=== PATIENT | male | born 1990 | race Caucasian/White ===

== ENCOUNTER 2018-01-18 15:49 | Emergency (ER) | payer OTHER ==
[~2018-01-18] VITALS: Ht 177.8 cm; Wt 93.0 kg
[~2018-01-18 15:49] MED LIST: NOHOMEMEDICATIONS
[2018-01-18] MEDS ORDERED: IBUPROFEN 800800 M1 PO ×2 (17:17→17:19)
[2018-01-18 17:34] VITALS: BP 159/95
== END 2018-01-18 17:36 | disposition home or self-care (01) ==
LOC: M.ERS 15:49
DX: M79.674 Pain in right toe(s) (principal)

== ENCOUNTER 2018-08-05 11:40 | Emergency (ER) | payer OTHER ==
[~2018-08-05] VITALS: Ht 175.3 cm; Wt 93.0 kg
[~2018-08-05 11:40] MED LIST changes: +IBUPROFEN 800800 M1 PO
[2018-08-05] MEDS ORDERED: KEFLEX500 M1 PO (12:09)
[2018-08-05] MEDS ORDERED: MEDROLDOSEPACK PO (12:09)
[2018-08-05] MEDS ORDERED: KEFLEX250 MG/5 M PO (12:14)
[2018-08-05 12:20] VITALS: BP 154/97
== END 2018-08-05 12:21 | disposition home or self-care (01) ==
LOC: M.ERS 11:40
DX: S40.261A Insect bite (nonvenomous) of right shoulder, initial encounter (principal); T78.40XA Allergy, unspecified, initial encounter; W57.XXXA Bitten or stung by nonvenomous insect and other nonvenomous arthropods, initial encounter; Y93.89 Activity, other specified; Y92.89 Other specified places as the place of occurrence of the external cause; Y99.8 Other external cause status

== ENCOUNTER 2020-10-02 19:20 | Emergency (ER) | payer OTHER ==
[~2020-10-02] VITALS: Ht 177.8 cm; Wt 95.3 kg
[~2020-10-02 19:20] MED LIST changes: +KEFLEX250 MG/5 M PO; +KEFLEX500 M1 PO; +MEDROLDOSEPACK PO
[2020-10-02 20:13] LABS: ABSOLUTE BASOPHILS 0.1 thou/uL (0.0-0.2); ABSOLUTE EOSINOPHILS 0.7 thou/uL (0.0-0.7); ABSOLUTE LYMPHOCYTES 4.3 thou/uL (0.8-5.3); ABSOLUTE MONOCYTES 0.9 thou/uL (0.0-1.2); ABSOLUTE NEUTROPHILS 4.7 thou/uL (1.6-8.1); BASOPHILS 1.1 %; HEMOGLOBIN 15.5 gm/dL (14.0-18.0); LYMPHOCYTES 40.3 %; MCH 31.4 pg (26.0-34.0); MCHC 35.9 g/dL (28.0-37.0); MCV 87.3 fL (80.0-100.0); MONOCYTES 8.2 %; MPV 6.9 fl. (7.2-11.1); NUCLEATED RBCS 0 /100WBC; PLATELET COUNT* 270 thou/uL (150-400); POLYS 43.4 %; RBC 4.93 mil/uL (4.50-6.00); WBC 10.8 thou/uL (4.0-11.0)
[2020-10-02 20:22] LABS: CALCIUM 8.6 mg/dL (8.5-10.1); CREATININE 1.3 mg/dL (0.6-1.3); POTASSIUM 3.7 mmol/L (3.5-5.1)
[2020-10-02 20:26] LABS: ALBUMIN 4.1 g/dL (3.4-5.0); TOTAL BILIRUBIN 0.7 mg/dL (<0.1-1.0); TOTAL PROTEIN 7.7 g/dL (6.4-8.2)
[2020-10-02] MEDS ORDERED: VISTARIL 25 MG25 M1 PO (21:04)
[2020-10-02 21:26] VITALS: BP 146/86
--- NOTE | 2020-10-03 15:09 | EKG ---
[place] [address] ELECTROCARDIOGRAM REPORT Name: JULISSALUCY WILL Room: [facility]#: [id number] Admission: 10/02/20 Attend Phys: Discharge: 10/02/20 Date of : 86 Date of Service: 10/02/201925 Report #: [id number] THIS REPORT FOR: //name// [facility] ED Test Date: 2020-10-02 Test Time: 19:26:40 Pat Name: LUCY COSTA Department: Room: Gender: Hansard Reporter: [place] : 1990 Requested By: Ewelina Banks Order Number: [id number] MD: Emanuel Gutiérrez Measurements Intervals [place] Rate: 77 P: 8 W[place]: 168 QRS: 47 QRSD: 92 T: 33 QT: 354 QTc: 401 Interpretive Statements Sinus rhythm Borderline T wave abnormalities No previous ECG available for comparison Electronically Signed On 10-03-2020 15:09:40 CDT by Emanuel Gutiérrez [email or web address] <ELECTRONICALLY SIGNED> By: Emanuel Gutiérrez MD, [facility] 10/03/20 1509 25 25 Emanuel Gutiérrez MD, FACC /EPI
== END 2020-10-02 21:27 | disposition home or self-care (01) ==
LOC: M.ERS 19:20
PROVIDERS: Physician Assistant
DX: F41.9 Anxiety disorder, unspecified (principal); R07.89 Other chest pain